=== PATIENT | male | born 1985 | race Asian ===

== ENCOUNTER 2019-09-28 14:00 | Emergency (ER) | payer OTHER ==
[~2019-09-28] VITALS: Ht 177.8 cm; Wt 102.1 kg
--- NOTE | 2019-09-28 14:50 | NUR ---
PT IS IN ROOM #1B. DR FAY EVALUATED THE PT.
[2019-09-28] MEDS ORDERED: LIDOCAINE 1%-EPI 1:100,000 20 ML VIAL TP ONE (15:00)
[2019-09-28] MEDS ORDERED: TDAP DIPH,PERTUSS,TET VAC/PF 0.5 ML DISP.SYRIN IM ONE ×2 (16:15)
--- NOTE | 2019-09-28 16:24 | NUR ---
PT WAS D/C'd TO HOME AFTER DR FAY EVALUATION. D/C INSTRUCTIONS GIVEN TO THE PT. NO BLEEDING. NO S/S OF ACUTE DISTRESS.
[2019-09-28 16:25] VITALS: BP 142/88
== END 2019-09-28 16:26 | disposition home or self-care (01) ==
LOC: ER 14:00
DX: S01.01XA Laceration without foreign body of scalp, initial encounter (principal); S80.812A Abrasion, left lower leg, initial encounter; W22.8XXA Striking against or struck by other objects, initial encounter; Y93.89 Activity, other specified; Y92.89 Other specified places as the place of occurrence of the external cause; Y99.8 Other external cause status
CPT/HCPCS: 12002; 90471; 90715; 99283; J3490; A4217; A4663